=== PATIENT | female | born 1990 | race American Indian/Alaskan Native ===

== ENCOUNTER 2017-10-22 19:21 | Emergency (ER) | payer BC, MEDICAID ==
[2017-10-22 19:21] VITALS: BMI 31.8
--- NOTE | 2017-10-22 20:45 | ED PDOC ---
Arrival/HPI - General Chief Complaint: Psychiatric Evaluation Time Seen by Provider: 10/22/17 19:43 Historian: Patient - History of Present Illness Narrative History of Present Illness (Text): 10/22/17 20:41 27yo female with pmhx of bipolar present to ED for psychiatric evaluation. states she was paranoid when she went for job interview today. States she felt like, they want to kill her. The finance who is by the bedside states patient had suicidal ideation earlier. Patient states she usually get suicidal ideation whenever she gets an episode. She admits to depression. Denies current SI/HI, hallucination, somatic complaint. Past Medical History - Provider Review Nursing Documentation Reviewed: Yes - Infectious Disease Hx of Infectious Diseases: None - Tetanus Immunization Tetanus Immunization: Up to Date - Cardiac Hx Cardiac Disorders: No - Pulmonary Hx Asthma: Yes Hx Bronchitis: Yes - Neurological Hx Neurological Disorder: No - HEENT Hx HEENT Disorder: No - Renal Hx Renal Disorder: No - Endocrine/Metabolic Hx Endocrine Disorders: No - Hematological/Oncological Hx Blood Disorders: No - Integumentary Hx Dermatological Disorder: No - Musculoskeletal/Rheumatological Hx Musculoskeletal Disorders: No Hx Falls: No - Gastrointestinal Hx Gastrointestinal Disorders: No - Genitourinary/Gynecological Hx Genitourinary Disorders: No - Psychiatric Hx Psychophysiologic Disorder: Yes Hx Anxiety: Yes Hx Bipolar Disorder: Yes Hx Depression: Yes Hx Emotional Abuse: No Hx Panic Disorder: Yes Hx Physical Abuse: No Hx Substance Use: No - Past Surgical History Past Surgical History: No Previous - Surgical History Other/Comment: OVARIAN CYSTS - Suicidal Assessment Feels Threatened In Home Enviroment: No Family/Social History - Physician Review Nursing Documentation Reviewed: Yes Family/Social History: Unknown Family HX Smoking Status: Never Smoked Hx Alcohol Use: Yes Hx Substance Use: No Hx Substance Use Treatment: No Allergies/Home Meds Allergies/Adverse Reactions: Allergies esomeprazole magnesium [From Nexium] Allergy (Verified 10/23/17 05:45) RASH Home Medications: Home Meds Medication Instructions Recorded Confirmed FLUoxetine [Prozac] 10 mg PO DAILY 09/12/15 01/26/16 Review of Systems - Physician Review All systems were reviewed & negative as marked: Yes - Review of Systems Constitutional: Normal Eyes: Normal ENT: Normal Respiratory: Normal Cardiovascular: Normal Gastrointestinal: Normal Genitourinary Female: Normal Musculoskeletal: Normal Skin: Normal Neurological: Normal Endocrine: Normal Hemo/Lymphatic: Normal Psychiatric: Depression Physical Exam Vital Signs Reviewed: Yes Vital Signs Temp Pulse Resp BP Pulse Ox 10/23/17 05:15 70 18 114/81 100 10/23/17 04:44 98.1 F 70 18 114/81 100 10/23/17 03:00 72 18 104/65 100 10/22/17 23:27 105/53 L 10/22/17 20:27 98.9 F 75 20 91/57 L 99 Temperature: Afebrile Blood Pressure: Normal Pulse: Regular Respiratory Rate: Normal Appearance: Positive for: Well-Appearing, Non-Toxic, Comfortable Pain Distress: None Mental Status: Positive for: Alert and Oriented X 3 - Systems Exam Head: Present: Atraumatic, Normocephalic Pupils: Present: PERRL Extroacular Muscles: Present: EOMI Conjunctiva: Present: Normal Mouth: Present: Moist Mucous Membranes Neck: Present: Normal Range of Motion Respiratory/Chest: Present: Clear to Auscultation, Good Air Exchange. No: Respiratory Distress, Accessory Muscle Use Cardiovascular: Present: Regular Rate and Rhythm, Normal S1, S2. No: Murmurs Abdomen: No: Tenderness, Distention, Peritoneal Signs Back: Present: Normal Inspection Upper Extremity: Present: Normal Inspection. No: Cyanosis, Edema Lower Extremity: Present: Normal Inspection. No: Edema Neurological: Present: GCS=15, CN II-XII Intact, Speech Normal Skin: Present: Warm, Dry, Normal Color. No: Rashes Psychiatric: Present: Alert, Oriented x 3, Normal Insight, Normal Concentration , Depressed Mood Medical Decision Making ED Course and Treatment: 10/22/17 23:38 PT presented for stated history. She was not in any distress in ED. She denied SI/HI while in ED. Lab was reviewed and potassium was repleted. She was medically cleared for psychiatric evaluation EKG NSR; LAD @79bpm nstemi CXR NAD PT was seen in ED by PAULO Platt and will be transferred to any facility with bed for admission. 10/23/17 01:08 Per Giulia pt was accepted at [facility]. she is pending a bed. - Lab Interpretations Lab Results: 10/22/17 20:37 10/22/17 20:37 Lab Results 10/22/17 20:37: Alcohol, Quantitative < 10 10/22/17 20:37: Salicylates < 1 L, Acetaminophen < 10.0 L 10/22/17 20:37: Sodium 144, Potassium 3.4 L, Chloride 107, Carbon Dioxide 25, Anion Gap 16, BUN 8, Creatinine 0.6 L, Est GFR ( Amer) > 60, Est GFR (Non -Af Amer) > 60, Random Glucose 116 H, Calcium 8.7, Magnesium 1.9, Total Bilirubin 0.6, AST 24, ALT 28, Alkaline Phosphatase 73, Total Protein 7.3, Albumin 4.0, Globulin 3.4, Albumin/Globulin Ratio 1.2 10/22/17 20:37: WBC 6.3 D, RBC 4.42, Hgb 10.9 L, Hct 33.9 L, MCV 76.7 L, MCH 24.7 L, MCHC 32.2, RDW 15.3 H, Plt Count 298, MPV 9.0, Gran % 71.3 H, Lymph % ( Auto) 18.4 L, Tate % (Auto) 7.6 H, Eos % (Auto) 2.4, Baso % (Auto) 0.3, Gran # 4.48, Lymph # (Auto) 1.2, Tate # (Auto) 0.5, Eos # (Auto) 0.2, Baso # (Auto) 0.02 10/22/17 20:00: Urine Opiates Screen Negative, Urine Methadone Screen Negative, Ur Barbiturates Screen Negative, Ur Phencyclidine Scrn Negative, Ur Amphetamines Screen Negative, U Benzodiazepines Scrn Negative, U Oth Cocaine Metabols Negative, U Cannabinoids Screen Negative 10/22/17 20:00: Urine Color Yellow, Urine Appearance Clear, Urine pH 6.0, Ur Specific [place] 1.025, Urine Protein Trace H, Urine Glucose (UA) Negative, Urine Ketones Negative, Urine Blood Negative, Urine Nitrate Negative, Urine Bilirubin Negative, Urine Urobilinogen 1.0 H, Ur Leukocyte Esterase Negative, Urine RBC Negative, Urine WBC Negative, Ur Epithelial Cells 6 - 8, Hyaline Casts 0 - 2 - RAD Interpretation Radiology Orders: 10/22/17 23:24 CHEST PORTABLE [RAD] Stat - Medication Orders Current Medication Orders: Discontinued Medications Potassium Chloride (K-Dur 20 Meq Er Tab) 20 meq PO STAT STA Stop: 10/22/17 20:58 Last Admin: 10/22/17 23:17 Dose: 20 meq Disposition/Present on Arrival - Present on Arrival Any Indicators Present on Arrival: No History of DVT/PE: No History of Uncontrolled Diabetes: No Urinary Catheter: No History of Decub. Ulcer: No History Surgical Site Infection Following: None - Disposition Have Diagnosis and Disposition been Completed?: Yes Diagnosis: Major depression Disposition: Transfer [facility] Disposition Time: 05:00 Patient Problems: Current Active Problems Problem Status Onset Asthma, mild intermittent, well-controlled Acute DVT prophylaxis Acute Condition: STABLE Referrals: Julia Crawley MD [Primary Care Provider] - Follow up with primary Forms: [employer] (Thai)
[2017-10-22 20:46] LABS: BASO # 0.02 K/mm3 (0.0-2.0); BASO % 0.3 % (0.0-3.0); EOS # 0.2 (0.0-0.7); EOS % 2.4 % (1.5-5.0); GRAN # 4.48 (1.4-6.5); GRAN % 71.3 % (50.0-68.0); HEMOGLOBIN 10.9 g/dL (12.0-16.0); LYMPH # 1.2 (1.2-3.4); LYMPH % 18.4 % (22.0-35.0); MEAN CELL VOLUME 76.7 fl (80.0-105.0); MEAN CORPUSCULAR HEMOGLOBIN 24.7 pg (25.0-35.0); MEAN CORPUSCULAR HGB CONC 32.2 g/dl (31.0-37.0); MONO # 0.5 (0.1-0.6); MONO % 7.6 % (1.0-6.0); RBC 4.42 10^6/uL (3.5-6.1); RED CELL DISTRIBUTION WIDTH 15.3 % (11.5-14.5); WHITE BLOOD COUNT 6.3 10^3/ul (4.5-11.0)
[2017-10-22 20:54] LABS: ACETAMINOPHEN < 10.0 ug/ml (10.0-20.0); SALICYLATE < 1 mg/dL (2.0-20.0)
[2017-10-22 20:56] LABS: ALB/GLOB RATIO 1.2 (1.1-1.8); ALT/SGPT 28 U/L (7-56); AST/SGOT 24 U/L (14-36); BLOOD UREA NITROGEN 8 mg/dL (7-21); CALCIUM 8.7 mg/dL (8.4-10.5); GFR AFRICAN-AMERICAN > 60; GFR NON-AFRICAN AMERICAN > 60
[2017-10-22] MEDS ORDERED: Potassium Chloride 20 mEq ER Tab PO STA (20:57)
[2017-10-22 21:11] LABS: BARBITURATES, UR NEGATIVE (NEGATIVE); BENZODIAZEPINES, UR NEGATIVE (NEGATIVE); OPIATES, UR NEGATIVE (NEGATIVE); PHENCYCLIDINE, UR NEGATIVE (NEGATIVE)
[2017-10-22 21:20] LABS: URINE BILIRUBIN NEGATIVE (NEGATIVE); URINE BLOOD NEGATIVE (NEGATIVE); URINE GLUCOSE (UA) NEGATIVE (NEGATIVE); URINE LEUKOCYTE ESTERASE NEGATIVE Leu/uL (NEGATIVE); URINE PROTEIN TRACE mg/dL (<30 mg/dL)
[2017-10-22 21:21] LABS: URINE APPEARANCE CLEAR (CLEAR); URINE COLOR YELLOW (YELLOW)
[2017-10-22 21:38] LABS: URINE HYALINE CAST 0 - 2 /hpf; URINE RBC NEGATIVE /hpf (0-2); URINE WBC NEGATIVE /hpf (0-6)
[2017-10-23 04:11] VITALS: RESP 18; O2SAT 100
[2017-10-23 04:44] VITALS: BP 114/81; PULSE 70; TEMP 98.1
--- NOTE | 2017-10-23 08:28 | RAD ---
HISTORY: admission COMPARISON: No prior. FINDINGS: LUNGS: No active pulmonary disease. PLEURA: No significant pleural effusion identified, no pneumothorax apparent. CARDIOVASCULAR: Normal. OSSEOUS STRUCTURES: No significant abnormalities. VISUALIZED UPPER ABDOMEN: Normal. OTHER FINDINGS: None. IMPRESSION: No active disease.
--- NOTE | 2017-10-23 09:33 | CARD ---
APPROVED REPORT EKG Measurement Heart [id number] <Conclusion> Normal sinus rhythm
== END 2017-10-23 05:15 | disposition short-term general hospital (02) ==
LOC: ED 19:21
DX: F32.9 Major depressive disorder, single episode, unspecified (principal)